=== PATIENT | female | born 1970 | race Two or more races ===

== ENCOUNTER 2019-03-29 16:50 | Emergency (ER) | payer MEDICAID ==
[~2019-03-29] VITALS: Ht 165.1 cm; Wt 111.1 kg
[2019-03-29 16:54] VITALS: BP 165/94
--- NOTE | 2019-03-29 17:17 | NUR ---
PT HERE WITH "COLD LIKE SYMPTOMS" FOR 2 WEEKS.
[2019-03-29] MEDS ORDERED: IBUPROFEN 200 MG TABLET ONE (17:19)
--- NOTE | 2019-03-29 17:21 | NUR ---
PT MEDICATED PER ORDERS.
[2019-03-29] MEDS ORDERED: IBUPROFEN 200 MG TABLET PO ONE (17:30)
[2019-03-29 17:56] LABS: RAPID INFLUENZA A Negative (Negative); RAPID INFLUENZA B Negative (Negative)
--- NOTE | 2019-03-29 18:08 | NUR ---
Patient/Caregiver given discharge instructions and they have confirmed that they understand the instructions. Patient ambulatory with steady gait.
== END 2019-03-29 18:31 | disposition home or self-care (01) ==
LOC: ED 18:00
DX: J06.9 Acute upper respiratory infection, unspecified (principal); H69.83 Other specified disorders of Eustachian tube, bilateral; F20.9 Schizophrenia, unspecified
CPT/HCPCS: 71046; 87400; 99284